=== PATIENT | female | born 1975 | race Caucasian/White ===

== ENCOUNTER 2016-09-02 17:07 | Emergency (ER) | payer MEDICAID ==
[~2016-09-02] VITALS: Ht 162.6 cm; Wt 72.6 kg
[2016-09-02 17:27] VITALS: BP 152/54
--- NOTE | 2016-09-02 23:40 | NUR ---
PATIENT LEFT WITHOUT BEING SEEN BY DR. MARY. NO FURTHER CARE PROVIDED FOR PATIENT.
== END 2016-09-02 23:40 | disposition left against medical advice (07) ==
LOC: MED 17:07
DX: R06.02 Shortness of breath (principal); R05 Cough; Z53.21 Procedure and treatment not carried out due to patient leaving prior to being seen by health care provider

== ENCOUNTER 2017-04-23 11:04 | Emergency (ER) | payer MEDICAID, OTHER ==
[~2017-04-23] VITALS: Ht 162.6 cm; Wt 74.4 kg
--- NOTE | 2017-04-23 11:04 | NUR ---
1100 - Patient was BIBA and taken to bed 03 via angelica per EMS.
--- NOTE | 2017-04-23 11:05 | NUR ---
PATIENT PRESENTS TO ED WITH C/O MECHANICAL FALL/LT ANKLE PAIN;10/10 PAIN SCALE;DENIES HITTING HER HEAD/LOC;HX OF HTN,ASTHMA,ANEMIA;RX OF AMLODIPINE,LORATIDINE,ALBUTEROL .DENIES N/V/D; SKIN IS PINK/WARM/DRY; AAOX4 WITH EVEN AND STEADY GAIT; LUNGS CLEAR BL; HR EVEN AND REGULAR; PT DENIES ANY FEVER, CP, SOB, OR COUGH AT THIS TIME; PATIENT STATES PAIN OF 10/10 AT THIS TIME;PATIENT POSITIONED FOR COMFORT; HOB ELEVATED; BEDRAILS UP X2; BED DOWN. ER MD MADE AWARE OF PT STATUS.
[2017-04-23 11:16] VITALS: BP 138/76
[2017-04-23] MEDS ORDERED: KETOROLAC 60 MG/2 ML VIAL IM ONE (11:25)
--- NOTE | 2017-04-23 11:34 | NUR ---
XRAY at bedside.
[2017-04-23] MEDS ORDERED: HYDROcodone/APAP 5/325 MG 1 TAB TAB PO ONE (12:15)
--- NOTE | 2017-04-23 12:59 | NUR ---
Patient discharged with v/s stable. Written and verbal after care instructions given and explained. Patient alert, oriented and verbalized understanding of instructions. Wheel Chair Assisted with to car. All questions addressed prior to discharge. ID band removed. Patient advised to follow up with PMD. Rx of NORCO, NAPROSYN, ALBUTEROL given. Patient educated on indication of medication including possible reaction and side effects. Opportunity to ask questions provided and answered.
[2017-04-23 13:00] VITALS: BP 128/71
== END 2017-04-23 12:59 | disposition home or self-care (01) ==
LOC: MED 11:04
DX: S93.602A Unspecified sprain of left foot, initial encounter (principal); J45.909 Unspecified asthma, uncomplicated; I10 Essential (primary) hypertension; Z88.5 Allergy status to narcotic agent; W10.9XXA Fall (on) (from) unspecified stairs and steps, initial encounter; Y93.89 Activity, other specified; Y92.89 Other specified places as the place of occurrence of the external cause; Y99.8 Other external cause status
CPT/HCPCS: 29515; 73630; 96372; 99284; J1885

== ENCOUNTER 2017-05-01 20:31 | Inpatient (IN) | payer OTHER ==
[~2017-05-01] VITALS: Ht 162.6 cm; Wt 73.5 kg
[2017-05-01 20:35] VITALS: BP 150/89
--- NOTE | 2017-05-01 20:44 | NUR ---
SENT TO LOBBY IN STABLE CONDITION, WAITING FOR A BED.
[2017-05-01] MEDS ORDERED: KETOROLAC 60 MG/2 ML VIAL IM ONE (23:10)
[2017-05-01 23:38] LABS: BASOPHILS # (AUTO) 0.1 K/uL (0.00-0.22); BASOPHILS % (AUTO) 0.9 % (0.0-2.0); EOSINOPHILS # (AUTO) 0.2 K/uL (0-0.4); EOSINOPHILS % (AUTO) 2.9 % (0.0-4.0); LYMPHOCYTES # (AUTO) 1.1 K/uL (2.5-16.5); LYMPHOCYTES % (AUTO) 13.6 % (20.5-51.1); MEAN CORPUSCULAR HEMOGLOBIN 18 pg (27-31); MEAN CORPUSCULAR HGB CONC 29 g/dL (33-37); MONOCYTES # (AUTO) 0.2 K/uL (0.8-1.0); MONOCYTES % (AUTO) 2.3 % (1.7-9.3); NEUTROPHILS # (AUTO) 6.2 K/uL (1.8-7.7); NEUTROPHILS % (AUTO) 80.3 % (42.2-75.2); PLATELET COUNT (AUTO) 432 K/uL (140-450); RED BLOOD CELL COUNT(AUTO) 2.65 MIL/uL (4.20-5.40); WHITE BLOOD COUNT (AUTO) 7.8 K/uL (4.8-10.8)
[2017-05-01 23:39] LABS: HEMOGLOBIN 4.7 g/dL (12.0-16.0)
[2017-05-01 23:40] LABS: HEMATOCRIT 16.4 % (36-48); MEAN CORPUSCULAR VOLUME 62 fL (80-94)
[2017-05-01] MEDS ORDERED: ONDANSETRON 4 MG/2 ML VIAL IVP PRN (23:55)
[2017-05-01] MEDS ORDERED: ALBUTEROL 0.083% 2.5 MG/3 ML NEBU IH PRN (23:55)
[2017-05-01] MEDS ORDERED: LORazepam 2 MG/ML VIAL IVP PRN (23:55)
[2017-05-02] MEDS ORDERED: NACL 0.9% 1,000 ML IV ONE ×2 (00:05)
--- NOTE | 2017-05-02 00:18 | NUR ---
IV 18GA RT FA DONE, UA DONE HCG +, BLOOD SENT TO LAB. LMP 04/03/17, MIS AB0
[2017-05-02 00:29] LABS: ANION GAP 13.6 (8-16); CARBON DIOXIDE 21.8 mmol/L (21-32); CREATININE 0.7 mg/dL (0.6-1.3); POTASSIUM 3.4 mmol/L (3.5-5.1)
--- NOTE | 2017-05-02 00:29 | NUR ---
42Y/F PRESENTS TO ER C/O WEAKNESS. PMH HTN, ANEMIA. ALLERGY TO CODEINE. PT STATES STARTING YESTERDAY AM SHE HAS HAD GENERALIZED WEAKNESS, WHEN SHE WALKS AROUND SHE FEELS SOB, AND DIZZINESS. PT STATES SHE HAS FELT LIKE THIS BEFORE WHEN HER HEMOBLOBIN WAS "REALLY LOW". PT WAS SEEN IN ER 1 WEEK AGO FOR SPRAINED ANKLE, PT HAS ELASTIC SUPPORT TO LEFT ANKLE , SHARP PAIN, 10/10 NON RADIATING TO LEFT ANKLE. PT DENIES N/V/D. PT IN BED POSITIONED FOR COMFORT.
[2017-05-02] MEDS ORDERED: MORPHINE SULFATE 4 MG/ML SYR IVP ONE (00:30)
[2017-05-02 00:36] LABS: ALBUMIN 2.7 g/dL (3.4-5.0); TOTAL BILIRUBIN 0.3 mg/dL (0.0-1.0)
[2017-05-02 00:39] LABS: PROTHROMBIN TIME 9.9 secs (10.8-13.4)
[2017-05-02] MEDS ORDERED: ALBU0.0912 IH (01:01)
[2017-05-02] MEDS ORDERED: NAPR500T1 PO (01:01)
[2017-05-02] MEDS ORDERED: PRON INH (01:01)
[2017-05-02] MEDS ORDERED: ACET-2858 PO (01:01)
--- NOTE | 2017-05-02 01:04 | NUR ---
Patient will be admitted to care of DR PATTON. Admited to MED SURG. Will go to room 119-A. Belongings list completed. Report to PENELOPE.
[2017-05-02] MEDS: ALBUTEROL 0.083% 2.5 MG/3 ML NEBU IH SCH ×4 (01:08→19:34)
--- NOTE | 2017-05-02 01:10 | NUR ---
PT ARRIVED TO UNIT VIA GURNEY. RECEIVED REPORT AT BEDSIDE FROM [employer]ER [employer]S. Luis Alberto/ROSA4 ON ROOM AIR. PT HAS A 18G IV TO RIGHT FA. SKIN INTACT. PT JUST FOUND OUT SHE IS . SAFETY PRECAUTIONS IN PLACE. UPDATED BOARD. VITAL SIGNS WITHIN NORMAL LIMITS. PT IN STABLE CONDITION, NO SIGNS OF DISTRESS NOTED. BED IN LOW POSITION, CALL LIGHT WITHIN REACH. WILL CONTINUE TO MONITOR.
[2017-05-02 01:27] VITALS: BP 164/92
--- NOTE | 2017-05-02 01:52 | NUR ---
Zhao robles in EDM - 05/02/17 at 0153 by MEDWL Patient will be admitted to care of DR PATTON. Admited to MED SURG. Will go to room 119-A. [facility] list completed. Report to PENELOPE.
[2017-05-02] MEDS ORDERED: INFLUENZA VIRUS VACCINE QUAD 0.5 ML SYR IMVAC PRN (01:55)
--- NOTE | 2017-05-02 02:35 | NUR ---
BLOOD TRANSFUSION STARTED. MONITORING PT CLOSELY FOR ANY ADVERSE REACTIONS.
[2017-05-02 05:00] VITALS: BP 153/99
--- NOTE | 2017-05-02 05:00 | NUR ---
BLOOD TRANSFUSION ENDED, NO REACTION OCCURRED. WILL CONTINUE TO MONITOR PATIENT CLOSELY.
--- NOTE | 2017-05-02 07:18 | NUR ---
ENDORSED PT TO DAY SHIFT RN FOR CONTINUITY OF CARE. PT IN STABLE CONDITION.
[2017-05-02 07:24] LABS: BASOPHILS # (AUTO) 0.1 K/uL (0.00-0.22); BASOPHILS % (AUTO) 0.7 % (0.0-2.0); EOSINOPHILS # (AUTO) 0.3 K/uL (0-0.4); EOSINOPHILS % (AUTO) 3.1 % (0.0-4.0); LYMPHOCYTES # (AUTO) 1.3 K/uL (2.5-16.5); LYMPHOCYTES % (AUTO) 12.9 % (20.5-51.1); MEAN CORPUSCULAR HEMOGLOBIN 19 pg (27-31); MEAN CORPUSCULAR HGB CONC 30 g/dL (33-37); MEAN CORPUSCULAR VOLUME 65 fL (80-94); MONOCYTES # (AUTO) 0.5 K/uL (0.8-1.0); MONOCYTES % (AUTO) 5.5 % (1.7-9.3); NEUTROPHILS # (AUTO) 7.7 K/uL (1.8-7.7); NEUTROPHILS % (AUTO) 77.8 % (42.2-75.2); PLATELET COUNT (AUTO) 437 K/uL (140-450); RED BLOOD CELL COUNT(AUTO) 2.92 MIL/uL (4.20-5.40); RED CELL DISTRIBUTION WIDTH 21.6 % (11.6-13.7); WHITE BLOOD COUNT (AUTO) 9.9 K/uL (4.8-10.8)
--- NOTE | 2017-05-02 07:25 | NUR ---
RECEIVED REPORT FROM NU CARBALLO. PT IS SLEEPING IN BED BUT EASILY AWAKEN, PT IS A/OX4, AMBULATORY, PT HAS IV ON THE LEFT FA, PATENT, INTACT, FLUSHING WELL, NO S/S OF RESPIRATORY DISTRESS OR DISCOMFORT NOTED, DISCUSSED PLAN OF CARE WITH PT, PT VERBALIZED UNDERSTANDING, SAFETY/FALL PRECAUTIONS ARE IN PLACE, CALL LIGHT IS WITHIN REACH, WILL CONTINUE TO MONITOR.
[2017-05-02 07:32] LABS: PROTHROMBIN TIME 9.7 secs (10.8-13.4)
[2017-05-02 07:37] LABS: HEMATOCRIT 18.8 % (36-48); HEMOGLOBIN 5.6 g/dL (12.0-16.0)
[2017-05-02 07:41] LABS: ALBUMIN 2.7 g/dL (3.4-5.0); ANION GAP 12.3 (8-16); CARBON DIOXIDE 22.1 mmol/L (21-32); CREATININE 0.7 mg/dL (0.6-1.3); MAGNESIUM 1.6 mg/dL (1.8-2.4); POTASSIUM 3.4 mmol/L (3.5-5.1); TOTAL BILIRUBIN 0.7 mg/dL (0.0-1.0)
--- NOTE | 2017-05-02 07:45 | NUR ---
RECEIVED PHONE CALL FROM DR. NIETO, PER DR. NIETO ORDER BOWEL PREP, MAKE PT NPO. I LET DR. NIETO KNOW THE PATIENT WAS COMPLAINING OF SEVERE LEG PAIN. PER DR. NIETO GIVE MORPHINE 4MG.
[2017-05-02 08:00] VITALS: BP 159/102
[2017-05-02] MEDS: ACETAMINOPHEN 325 MG TAB PO PRN ×3 (08:19→20:37)
--- NOTE | 2017-05-02 08:34 | NUR ---
CALLED DR. SZYMANSKI ON HIS CELL PHONE NUMBER, I REACHED HIS VOICEMAIL. I LEFT HIM A MESSAGE ASKING HIM TO PLEASE CALL ME BACK TO LET ME KNOW IF HE WANTED TO DO THE 2,000 ML OR 4,000 ML BOWEL PREP.
[2017-05-02] MEDS ORDERED: BOWEL EVACUANT DRINK 4,000 ML PDS PO SCH (09:00)
--- NOTE | 2017-05-02 09:13 | NUR ---
PATIENT HAS BEEN SCREENED AND CATEGORIZED LOW NUTRITIONAL RISK. PATIENT WILL BE SEEN WITHIN 7 DAYS OF ADMISSION. 05/08/[address]
--- NOTE | 2017-05-02 10:20 | NUR ---
INFORMED DR. PATTON THAT THE PATIENT'S POTASSIUM WAS 3.4 AND MG 1.6. I ALSO INFORMED DR. PATTON THE PATIENT WAS REFUSING THE COLONSCOPY AT THIS TIME.
--- NOTE | 2017-05-02 10:23 | NUR ---
RECEIVED PHONE CALL FROM DR. SZYMANSKI, I LET HIM KNOW THE PATIENT WAS REFUSING TO HAVE THE COLONOSCOPY DONE TODAY AND REFUSED TO DRINK THE GOLYTELY. I LET HIM KNOW THE PATIENT WANTED TO WAIT UNTIL FRIDAY IF SHE HAD TO. PER DR. SZYMANSKI PUT THE PATIENT ON FULL LIQUID DIET, GIVE HER SENNA 4 TABS, LACTULOSE 45ML 1 HR LATE, MG CITRATE 1 HR LATER AND LACTULOSE AGAIN 45ML [address] SZYMANSKI SAID HE WOULD BE HERE TO TALK TO THE PATIENT.
--- NOTE | 2017-05-02 10:30 | NUR ---
DR. PATTON SPOKE TO PATIENT AT BEDSIDE. NO NEW ORDERS WERE RECEIVED BY DR. PATTON AT THIS TIME.
[2017-05-02] MEDS: MORPHINE SULFATE 4 MG/ML SYR IVP PRN ×2 (10:40→16:41)
--- NOTE | 2017-05-02 10:56 | NUR ---
CM NOTE PER [facility] OCTOBER REVIEWS SHOULD ONLY BE SENT TO [facility] AND FOR ANY DISCHARGE NEEDS TO SEND TO [facility] FAX# [phone] PH# [phone]. INITIAL REVIEW FAXED TO [facility] [phone] OCTOBER PH# [phone].
[2017-05-02 12:00] VITALS: BP 140/57
--- NOTE | 2017-05-02 12:36 | NUR ---
PT STATED HER LAST MENSTRUAL PERIOD WAS ON 2016.
--- NOTE | 2017-05-02 14:00 | NUR ---
1 UNIT OF BLOOD TRANSFUSION COMPLETED AT THIS TIME. Addendum: 05/02/17 at 1620 by Debi Colvin RN PT TOLERATED WELL, NO ADVERSE REACTIONS NOTED.
[2017-05-02] MEDS ORDERED: guaiFENesin 20 MG/ML UDC PO PRN (14:15)
[2017-05-02] MEDS: FERRIC GLUCONATE 125 MG in NACL 0.9% 100 ML IV SCH (14:23)
--- NOTE | 2017-05-02 14:36 | NUR ---
NOTIFIED DR. Kiley FRANK OVER THE PHONE REGARDING OB CONSULT. STATED HE WILL COME TO SEE PT.
[2017-05-02 15:49] LABS: BASOPHILS # (AUTO) 0.1 K/uL (0.00-0.22); BASOPHILS % (AUTO) 0.8 % (0.0-2.0); EOSINOPHILS # (AUTO) 0.2 K/uL (0-0.4); LYMPHOCYTES % (AUTO) 12.9 % (20.5-51.1); MEAN CORPUSCULAR HEMOGLOBIN 20 pg (27-31); MEAN CORPUSCULAR HGB CONC 30 g/dL (33-37); MEAN CORPUSCULAR VOLUME 67 fL (80-94); MONOCYTES # (AUTO) 0.6 K/uL (0.8-1.0); MONOCYTES % (AUTO) 7.5 % (1.7-9.3); NEUTROPHILS # (AUTO) 5.6 K/uL (1.8-7.7); NEUTROPHILS % (AUTO) 75.8 % (42.2-75.2); PLATELET COUNT (AUTO) 409 K/uL (140-450); RED BLOOD CELL COUNT(AUTO) 3.09 MIL/uL (4.20-5.40); RED CELL DISTRIBUTION WIDTH 24.1 % (11.6-13.7); WHITE BLOOD COUNT (AUTO) 7.5 K/uL (4.8-10.8)
[2017-05-02 15:52] LABS: HEMOGLOBIN 6.2 g/dL (12.0-16.0)
[2017-05-02 15:53] LABS: HEMATOCRIT 20.8 % (36-48)
[2017-05-02 16:00] VITALS: BP 158/94
--- NOTE | 2017-05-02 16:19 | NUR ---
ULTRASOUND AT PATIENT BEDSIDE AT THIS TIME.
[2017-05-02] MEDS: FERROUS SULFATE 325 MG TABEC PO SCH (16:40)
--- NOTE | 2017-05-02 17:25 | NUR ---
PAGED DR. PATTON A SECOND TIME TO LET HIM KNOW ABOUT THE PATIENT'S RECENT H/H.
--- NOTE | 2017-05-02 19:10 | NUR ---
ENDORSED PT TO ELECTRON GUN ASSEMBLER NURSE FOR CONTINUITY OF CARE, PT STABLE AT THIS TIME.
--- NOTE | 2017-05-02 19:11 | NUR ---
RECEIVED BEDSIDE FROM DAY SHIFT REPORT FROM BEDSIDE REPORT PT STABLE, NO DISTRESS NOTED, PT AAOX4, IV TO FA 18G SL INFUSING WELL, INITIAL ASSESSMENT DONE, ALL SAFETY PRECAUTION MET. WILL CONTINUE TO MONITOR.
[2017-05-02 20:00] VITALS: BP 161/103
[2017-05-02] MEDS: methylPREDNISolone SS 125 MG/2 ML VIAL IVP SCH (20:37)
[2017-05-02] MEDS: LACTULOSE 20 GM/30 ML UDC PO SCH (20:38)
--- NOTE | 2017-05-02 21:20 | NUR ---
PAGED DR. GERSON DR. CALLED BACK REGARDING PT, INFORMED OF PT CONDITION, HEMOGLOBIN OF 6.2 AND HEMATOCRIT OF 20.8, AND PT REQUEST OF SLEEPING PILLS, ORDER TO D/C MORPHINE AND ATIVAN DUE TO ADVERSE EFFECT TO THE . WILL CONTINUE WITH DR. SNIDER.
--- NOTE | 2017-05-02 21:30 | NUR ---
INFORMED PT REGARDING DR. SNIDER, PT STATED UNDERSTANDING, LEFT RESTING, NO DISTRESS NOTED, CALL LIGHT WITHIN REACH.
[2017-05-03] VITALS: BP 164/101
[2017-05-03] MEDS: ALBUTEROL 0.083% 2.5 MG/3 ML NEBU IH SCH ×4 (00:48→19:00)
--- NOTE | 2017-05-03 01:20 | NUR ---
CHECKED ON PT, PT STABLE, NO DISTRESS NOTED, STATED THAT SHE CAN NOT SLEEP, CALL LIGHT WITHIN REACH, WILL CONTINUE TO MONITOR.
[2017-05-03 04:00] VITALS: BP 149/104
[2017-05-03] MEDS: ACETAMINOPHEN 325 MG TAB PO PRN ×4 (04:12→20:42)
--- NOTE | 2017-05-03 04:12 | NUR ---
DUE MEDICATION GIVEN, PT TOLERATED WELL, C/O OF PAIN OF 6/10, PAIN MEDICATION GIVEN, PT STABLE, NO DISTRESS NOTED, WILL CONTINUE TO MONITOR.
[2017-05-03] MEDS: methylPREDNISolone SS 125 MG/2 ML VIAL IVP SCH ×3 (04:13→20:45)
[2017-05-03 07:07] LABS: ANION GAP 14.4 (8-16); CREATININE 0.6 mg/dL (0.6-1.3); POTASSIUM 3.4 mmol/L (3.5-5.1)
--- NOTE | 2017-05-03 07:19 | NUR ---
ENDORSED PT TO DAY SHIFT NURSE RACHEL RN, PT STABLE NO DISTRESS NOTED, CALL LIGHT WITHIN REACH.
--- NOTE | 2017-05-03 07:20 | NUR ---
RECEIVED REPORT FROM THE SUPERVISOR PIT AND AUXILIARIES NURSE AT BEDSIDE FOR CONTINUITY OF CARE. PT IS AWAKE AND ORIENTED. INTRODUCED MYSELF AND UPDATED THE BOARD. PT IS HERE FOR SOB AND WEAKNESS X 3 DAYS. PER SUPERVISOR PIT AND AUXILIARIES NURSE, HER HEMOGLOBIN IS AT 4.7, HAD 1 PRBC AND NOW 6.2. IV ON R FA 18G BUT C/O PAIN. WILL NEED TO START ANOTHER IV. V/S WITHIN LIMITS. BP SLIGHTLY HIGH. AWAITING DR. FRANK'S CONSULT. PT IS 15 WEEKS . WILL CONTINUE TO MONITOR PT.
[2017-05-03 07:36] LABS: MEAN CORPUSCULAR HEMOGLOBIN 20 pg (27-31); MEAN CORPUSCULAR HGB CONC 29 g/dL (33-37); MEAN CORPUSCULAR VOLUME 68 fL (80-94); PLATELET COUNT (AUTO) 319 K/uL (140-450); RED BLOOD CELL COUNT(AUTO) 3.08 MIL/uL (4.20-5.40); RED CELL DISTRIBUTION WIDTH 25.2 % (11.6-13.7); WHITE BLOOD COUNT (AUTO) 10.4 K/uL (4.8-10.8)
--- NOTE | 2017-05-03 07:41 | NUR ---
PT REFUSES HHN WANTS TO EAT
[2017-05-03 07:49] LABS: HEMOGLOBIN 6.2 g/dL (12.0-16.0)
--- NOTE | 2017-05-03 07:50 | NUR ---
CRITICAL LAB : B 6.2 WILL NOTIFY
[2017-05-03 08:00] VITALS: BP 166/105
[2017-05-03 08:01] LABS: EOSINOPHILS % (MANUAL) 2 % (0-4); LYMPHOCYTES % (MANUAL) 4 % (20-46); MONOCYTES % (MANUAL) 2 % (5-12)
[2017-05-03 08:02] LABS: CORRECTED WHITE BLOOD COUNT 9.9 K/uL (4.5-11.0)
--- NOTE | 2017-05-03 08:39 | NUR ---
DR. FRANK CAME IN TO SEE PT. ORDERED 3U OF PRBC'S. PUT IN ORDERS FOR MD. D/C TOMORROW.
[2017-05-03] MEDS: FERROUS SULFATE 325 MG TABEC PO SCH ×3 (09:36→17:34)
[2017-05-03] MEDS: LACTULOSE 20 GM/30 ML UDC PO SCH ×2 (09:36→20:45)
[2017-05-03 12:00] VITALS: BP 166/105
--- NOTE | 2017-05-03 12:10 | NUR ---
LAB CALLED TO LET ME KNOW THAT THE BLOOD IS READY. WILL GET EVERYTHING SET UP AND GET THE BLOOD.
[2017-05-03] MEDS: FERRIC GLUCONATE 125 MG in NACL 0.9% 100 ML IV SCH (13:00)
--- NOTE | 2017-05-03 13:35 | NUR ---
PT REFUSED HHN VITALS ARE STABLE
--- NOTE | 2017-05-03 13:35 | NUR ---
STARTED THE BLOOD TRANSFUSION. V/S WITHIN NORMAL LIMITS. WILL CONTINUE TO MONITOR PT PER PROTOCOL.
--- NOTE | 2017-05-03 14:50 | NUR ---
PT TOLERATING THE BLOOD TRANSFUSION WELL. PT DENIES ANY PAIN, CHILLS, OR FEVER. V/S WITHIN NORMAL LIMITS. WILL CONTINUE TO MONITOR PT.
--- NOTE | 2017-05-03 14:55 | NUR ---
STARTED SECOND UNIT OF PRBC'S. PT TOLERATED THE FIRST UNIT WITHOUT ANY REACTIONS. VERIFIED WITH 2ND NURSE. WILL CONTINUE TO MONITOR PT. Addendum: 05/03/17 at 1820 by Edna Flores RN 1655 ACTUAL TIME 2ND BAG STARTED. NOT 1455.
[2017-05-03 16:00] VITALS: BP 177/107
--- NOTE | 2017-05-03 18:20 | NUR ---
PT'S BP IS BEEN HIGH ALL DAY. SPOKE TO DR. PATTON EARLIER THIS MORNING ABOUT HOW SHE TAKE AMLODIPINE AT HOME. UNSURE ABOUT DOSAGE. JUST SAID TO KEEP MONITORING. NO ORDERS FOR MEDS. IT'S BEEN HIGH 177 SYSTOLIC AND 108 DIASTOLIC. WILL NEED TO TALK TO DR. PATTON AGAIN. PAGEJuliano TILLMAN.
--- NOTE | 2017-05-03 18:47 | NUR ---
SPOKE TO DR. RICKETTS, BATTALION CHIEF EXPLAINED PT IS . EXPLAINED BP IS HIGH AND HR HIGH. MD ORDERED LABETOLOL 100MG BID. ORDER SUBMITTED FOR .
--- NOTE | 2017-05-03 19:25 | NUR ---
ENDORSED PT TO THE FUR TINTER NURSE AT BEDSIDE FOR CONTINUITY OF CARE. PT IS IN STABLE CONDITION.
--- NOTE | 2017-05-03 19:26 | NUR ---
RECEIVED PT FROM RACHEL JUDGE PT IS AAOX4 AMBULATORY, ON LEFT ARM #2 BLOOD TRANSFUSION ALREADY FINISH . PT VERBALIZED TO REFUSED THE OTHER UNIT SHE SAID TO FEEL VERY TIRED ON BLOOD TRANSFUSION WILL BE NOTIFY
[2017-05-03 20:00] VITALS: BP 169/100
[2017-05-03] MEDS: LABETALOL 100 MG TAB PO SCH (20:44)
--- NOTE | 2017-05-03 21:00 | NUR ---
DR RICKETTS CALL BACK AND WAS NOTIFY PT CONDITION AND ALSO THAT PT REFUSED THE THIRD UNIT OF PRBC DOCTOR SAID LAB IN AM AND MONITOR BP
--- NOTE | 2017-05-03 22:00 | NUR ---
PT EATING HS SNACK VERBALIZED TO FEEL BETTER AND GETTING TO SLEEP
[2017-05-04] VITALS (7 sets, daily range): BP systolic 142–182; BP diastolic 82–110
--- NOTE | 2017-05-04 00:30 | NUR ---
PT SLEEPING DENIES ANY PAIN OR DISCOMFORT REMAIN STABLE ON TELEMETRY SR
[2017-05-04] MEDS: ALBUTEROL 0.083% 2.5 MG/3 ML NEBU IH SCH ×4 (01:00→19:44)
--- NOTE | 2017-05-04 01:08 | NUR ---
PT DID NOT WANT TO HAVE HER 0100 HHNTX. WILL CALL IF NEEDS A HHNTX
--- NOTE | 2017-05-04 04:00 | NUR ---
SPONGE BATH GIVEN LINEN CHANGED NOT DISTRESS NOTED VOIDING WELL ON TELE ST
[2017-05-04] MEDS: methylPREDNISolone SS 125 MG/2 ML VIAL IVP SCH (05:17)
--- NOTE | 2017-05-04 06:26 | NUR ---
PT SLEEPING DENIES ANY PAIN OR DISCOMFORT ON TELEMETRY SR
--- NOTE | 2017-05-04 06:49 | NUR ---
REFUSES HHN THERAPY AT THIS TIME PATIENT STATES "I DON'T WANT TO RIGHT KNOW" NO SOB NOTED COMPREHENSIVE ADVISOR WILL ATTEMPT HHN THERAPY AT A LATER TIME
[2017-05-04 07:06] LABS: ANION GAP 12.8 (8-16); CARBON DIOXIDE 22.8 mmol/L (21-32); CREATININE 0.6 mg/dL (0.6-1.3); POTASSIUM 3.6 mmol/L (3.5-5.1)
[2017-05-04 07:08] LABS: HEMATOCRIT 27.7 % (36-48); HEMOGLOBIN 8.4 g/dL (12.0-16.0); MEAN CORPUSCULAR HEMOGLOBIN 23 pg (27-31); MEAN CORPUSCULAR HGB CONC 30 g/dL (33-37); MEAN CORPUSCULAR VOLUME 74 fL (80-94); PLATELET COUNT (AUTO) 271 K/uL (140-450); RED BLOOD CELL COUNT(AUTO) 3.76 MIL/uL (4.20-5.40); RED CELL DISTRIBUTION WIDTH 26.7 % (11.6-13.7); WHITE BLOOD COUNT (AUTO) 24.5 K/uL (4.8-10.8)
--- NOTE | 2017-05-04 07:20 | NUR ---
ENDORSEMENT RECEIVED FROM TAX APPRAISER NURSE. PATIENT IS SLEEPING COMFORTABLY, RESPIRATION EVEN, UNLABOR. SKIN DRY AND WARM. IV INTACT AND PATENT. NO DISTRESS NOTED AT THIS TIME. CALL LIGHT WITHIN REACH
[2017-05-04] MEDS: FERROUS SULFATE 325 MG TABEC PO SCH ×3 (08:06→17:02)
[2017-05-04] MEDS: LABETALOL 100 MG TAB PO SCH ×2 (08:06→21:00)
[2017-05-04] MEDS: LACTULOSE 20 GM/30 ML UDC PO SCH ×2 (08:07→21:00)
[2017-05-04] MEDS: ACETAMINOPHEN 325 MG TAB PO PRN ×2 (08:07→17:38)
[2017-05-04 08:21] LABS: BASOPHILS % (MANUAL) 0 % (0-2); EOSINOPHILS % (MANUAL) 0 % (0-4); LYMPHOCYTES % (MANUAL) 3 % (20-46); MONOCYTES % (MANUAL) 2 % (5-12)
--- NOTE | 2017-05-04 09:00 | NUR ---
DR. PATTON WAS MADE AWARE OF PATIENT WBC 24.5. WILL CONTINUE TO MONITOR
--- NOTE | 2017-05-04 11:17 | NUR ---
PATIENT IS SLEEPING COMFORTABLY. RESPIRATION EVEN, UNLABOR. NO DISTRESS NOTED. CALL LIGHT WITHIN REACH. WILL CONTINUE TO MONITOR.
[2017-05-04] MEDS: FERRIC GLUCONATE 125 MG in NACL 0.9% 100 ML IV SCH (12:05)
[2017-05-04] MEDS: methylPREDNISolone SS 40 MG/ML VIAL IVP SCH ×2 (12:05→21:00)
--- NOTE | 2017-05-04 14:38 | NUR ---
PATIENT IS SLEEPING COMFORTABLY. RESPIRATION EVEN, UNLABOR. NO DISTRESS NOTED AT THIS TIME. CALL LIGHT WITHIN REACH.
[2017-05-04] MEDS ORDERED: cloNIDine 0.1 MG TAB PO PRN (17:25)
--- NOTE | 2017-05-04 17:26 | NUR ---
DR. BABB WAS MADE AWARE OF PATIENT'S BP 167/101. WILL MEDICATE PER ORDER
--- NOTE | 2017-05-04 18:29 | NUR ---
PATIENT IS SLEEPING COMFORTABLY. RESPIRATION EVEN, UNLABOR. NO DISTRESS NOTED. CALL LIGHT WITHIN REACH
--- NOTE | 2017-05-04 19:11 | NUR ---
ENDORSEMENT GIVEN TO THE TRAVEL AGENCY MANAGER NURSE. PATIENT IS STABLE AT THIS TIME Addendum: 05/04/17 at 1912 by Paula Bennett RN ENDORSED CLONIDINE REASSESSMENT FOR TRAVEL AGENCY MANAGER NURSE
--- NOTE | 2017-05-04 19:12 | NUR ---
RECEIVED HANDOFF REPORT FROM AM RN. PATIENT A&OX4. PATIENT STATES WANTING BREATHING TREATMENT. WILL FOLLOW UP WITH RT. PATIENT DENIES PAIN. LEFT FOREARM IV PATENT AND INTACT. RIGHT FOREARM IV PATENT AND INTACT. NO SIGNS OR SYMPTOMS OF ACUTE DISTRESS NOTED. CALL LIGHT WITHIN REACH. WILL CONTINUE TO MONITOR.
--- NOTE | 2017-05-04 19:45 | NUR ---
RT IN TO SEE PATIENT. PATIENT STATES SHE DOES NOT WANT HER BLOOD PRESSURE RE CHECKED. PATIENT ALSO DENIES PM MEDICATIONS AND STATES "ONLY BRING ME TYLENOL". NO SIGNS OR SYMPTOMS OF ACUTE DISTRESS NOTED. CALL LIGHT WITHIN REACH. WILL CONTINUE TO MONITOR.
--- NOTE | 2017-05-04 21:48 | NUR ---
PAGED DR BABB. MADE AWARE PATIENT IS REFUSING MEDS AND VITALS.
--- NOTE | 2017-05-05 00:32 | NUR ---
PATIENT RESTING IN BED. PATIENT DENIES PAIN. PATIENT REFUSES VITAL SIGNS. PATIENT REQUESTED BREATHING TREATMENT, RT NOTIFIED. NO SIGNS OR SYMPTOMS OF ACUTE DISTRESS NOTED. CALL LIGHT WITHIN REACH. WILL CONTINUE TO MONITOR.
[2017-05-05] MEDS: ALBUTEROL 0.083% 2.5 MG/3 ML NEBU IH SCH ×2 (01:30→07:05)
[2017-05-05] MEDS: methylPREDNISolone SS 40 MG/ML VIAL IVP SCH (04:13)
--- NOTE | 2017-05-05 04:21 | NUR ---
PATIENT RESTING IN BED. PATIENT REFUSED VITALS AND MEDICATION. NO SIGNS OR SYMPTOMS OF ACUTE DISTRESS NOTED. CALL LIGHT WITHIN REACH. WILL CONTINUE TO MONITOR.
[2017-05-05 06:37] LABS: HEMATOCRIT 30.6 % (36-48); HEMOGLOBIN 9.2 g/dL (12.0-16.0); MEAN CORPUSCULAR HEMOGLOBIN 23 pg (27-31); MEAN CORPUSCULAR HGB CONC 30 g/dL (33-37); MEAN CORPUSCULAR VOLUME 76 fL (80-94); PLATELET COUNT (AUTO) 249 K/uL (140-450); RED BLOOD CELL COUNT(AUTO) 4.05 MIL/uL (4.20-5.40); RED CELL DISTRIBUTION WIDTH 27.8 % (11.6-13.7); WHITE BLOOD COUNT (AUTO) 23.3 K/uL (4.8-10.8)
--- NOTE | 2017-05-05 07:08 | NUR ---
ENDORSED PLAN OF CARE TO AM RN. PATIENT IN STABLE CONDITION.
--- NOTE | 2017-05-05 07:09 | NUR ---
RECEIVED REPORT FROM MARINE BIOLOGIST NURSE. PATIENT LYING IN BED, AROUSABLE BY VOICE. NO DISTRESS NOTED. RESPIRATIONS EVEN, UNLABORED, ON ROOM AIR. AAOX4, CALM, COOPERATIVE, SKIN COLOR APPROPRIATE TO ETHNICITY, WARM TO TOUCH. IV SITE ARE INTACT, PATENT, ON SALINE LOCK. LUNGS CTA ON ALL LOBES. ABDOMEN SOFT, NON-DISTENDED, PATIENT 15 WEEKS . SKIN INTACT WITH NO WOUNDS/LESIONS NOTED THROUGHOUT BODY. PATIENT IS AMBULATORY AND IS ABLE TO GET TO BATHROOM AND BACK TO BED WITH STEADY GAIT. REVIEWED PLAN OF CARE WITH PATIENT. PATIENT VERBALIZED UNDERSTANDING. SAFETY MEASURES IN PLACE, CALL LIGHT WITHIN REACH. WILL CONTINUE TO MONITOR.
[2017-05-05 07:18] LABS: LYMPHOCYTES % (MANUAL) 14 % (20-46); MONOCYTES % (MANUAL) 4 % (5-12)
[2017-05-05 08:00] VITALS: BP 148/92
[2017-05-05] MEDS: LACTULOSE 20 GM/30 ML UDC PO SCH (09:00)
[2017-05-05] MEDS: LABETALOL 100 MG TAB PO SCH (09:00)
[2017-05-05] MEDS ORDERED: PREN-564 PO (09:00)
[2017-05-05] MEDS ORDERED: ALBU0.0912 IH (09:00)
[2017-05-05] MEDS ORDERED: METH4TAB1 PO (09:00)
[2017-05-05] MEDS: FERROUS SULFATE 325 MG TABEC PO SCH ×2 (09:02→11:37)
--- NOTE | 2017-05-05 09:04 | NUR ---
PATIENT LYING DOWN IN BED COMFORTABLY. NO DISTRESS NOTED. DENIES ANY PAIN AT THIS TIME. SCHEDULED MEDICATIONS DUE GIVEN. PATIENT HAS INTERMITTENT DRY COUGH. SAFETY MEASURES IN PLACE, CALL LIGHT WITHIN REACH. WILL CONTINUE TO MONITOR.
--- NOTE | 2017-05-05 10:50 | NUR ---
PATIENT RECEIVING BREATHING TREATMENT FROM RESPIRATORY THERAPIST. NO DISTRESS NOTED. DENIES ANY PAIN. WILL CONTINUE TO MONITOR.
[2017-05-05] MEDS ORDERED: ALBUTEROL 0.083% 2.5 MG/3 ML NEBU INH PRN (11:00)
--- NOTE | 2017-05-05 11:09 | NUR ---
PT GIVEN HHN RX DR PATTON T/O Q4 PRN SOB
--- NOTE | 2017-05-05 11:10 | NUR ---
PATIENT TO BE DISCHARGED HOME TODAY. PATIENT MADE AWARE AND VERBALIZES UNDERSTANDING. FAMILY MEMBER ABLE TO BURGLAR ALARM INSTALLER PATIENT TODAY AROUND [phone]. SAFETY MEASURES IN PLACE, CALL LIGHT WITHIN REACH. WILL CONTINUE TO MONITOR.
--- NOTE | 2017-05-05 11:44 | NUR ---
PATIENT SITTING IN BED TALKING WITH FAMILY MEMBER ON PHONE. FAMILY MEMBER TO COME MECHANICAL DEVELOPER PROVER PATIENT FROM HOSPITAL AT 1200. DISCHARGE INSTRUCTIONS/EDUCATIONS PROVIDED TO PATIENT IN PREFERRED LANGUAGE OF [place], FOLLOW-UP INSTRUCTIONS, NEW/CHANGED MEDICATION REGIMEN, DIET REGIMEN, AND DISEASE PROCESS/MANAGEMENT/PREVENTION OF ANEMIA. ANSWERED ALL OF PATIENT'S QUESTIONS. PATIENT VERBALIZED COMPLETE UNDERSTANDING. IV SITE REMOVED WITH MINIMAL BLOOD AND LUMEN COMPLETELY INTACT. ID BANDS REMOVED. PATIENT ABLE TO AMBULATE INDEPENDENTLY AND DENIES ANY PAIN. AWAITING FOR PATIENT'S FAMILY MEMBER TO TAKE PATIENT HOME VIA PRIVATE VEHICLE.
--- NOTE | 2017-05-05 12:40 | NUR ---
PATIENT'S FAMILY MEMBER AT FRONT LOBBY TO TAKE PATIENT HOME VIA PRIVATE VEHICLE. ESCORTED PATIENT DOWN TO LOBBY VIA AMBULATION WITH STEADY GAIT. PATIENT REFUSED WHEELCHAIR. ALL BELONGINGS WITH PATIENT. PATIENT DISCHARGED HOME VIA PRIVATE VEHICLE IN STABLE CONDITION AT THIS TIME.
--- NOTE | 2017-05-05 15:30 | NUR ---
PATIENT CALLED ON PHONE TO REQUEST MD TO SEND NEW PRESCRIPTIONS TO [facility] AT [phone] DUE TO PATIENT'S PREFERRED PHARMACY, [facility], CLOSED TODAY FOR [place]. PATIENT REQUESTED NEW MEDICATIONS TODAY SHE FELT SHORTNESS OF BREATH AND REQUIRES THE ALBUTEROL SULFATE VIA N. PAGED DR. PATTON. AWAITING FOR CALL BACK.
--- NOTE | 2017-05-05 15:45 | NUR ---
DR. PATTON RETURNED CALL FROM PAGER AND SAID HE WILL SEND THE NEW PRESCRIPTIONS TO [facility]. CALLED PATIENT TO LET PATIENT KNOW. PATIENT VERBALIZED UNDERSTANDING AND SAID SHE IS ON HER WAY TO THE PHARMACY TO PICK THEM UP.
== END 2017-05-05 12:40 | disposition home or self-care (01) | DRG 566 ==
LOC: MED 20:31 → MTU 05-02 00:02
PROVIDERS: ADMIT Internal Medicine; ATTEND Internal Medicine
PROC: 30233N1 Transfusion of Nonautologous Red Blood Cells into Peripheral Vein, Percutaneous Approach (ICD-10-PCS; principal; 2017-05-02)
DX: O99.011 Anemia complicating pregnancy, first trimester (principal); E87.3 Alkalosis; J45.901 Unspecified asthma with (acute) exacerbation; E83.42 Hypomagnesemia; O10.911 Unspecified pre-existing hypertension complicating pregnancy, first trimester; O26.891 Other specified pregnancy related conditions, first trimester; D50.9 Iron deficiency anemia, unspecified; O99.281 Endocrine, nutritional and metabolic diseases complicating pregnancy, first trimester; E87.6 Hypokalemia; O99.511 Diseases of the respiratory system complicating pregnancy, first trimester; Z88.6 Allergy status to analgesic agent; Z68.27 Body mass index [BMI] 27.0-27.9, adult; D72.829 Elevated white blood cell count, unspecified; T38.0X5A Adverse effect of glucocorticoids and synthetic analogues, initial encounter; Z3A.00 Weeks of gestation of pregnancy not specified; Z98.891 History of uterine scar from previous surgery; Y92.89 Other specified places as the place of occurrence of the external cause
CPT/HCPCS: 36415; 76801; 80048; 80053; 83540; 83735; 84702; 85025; 85610; 85730; 86886; 86900; 86901; 86920; 87081; 94640; 96361; 96372; 96374; 99285; J1885; J2060; J2270; J2916; J2920; J2930; J7030; J7613; P9016; Q0092